=== PATIENT | female | born 2000 | race Caucasian/White ===

== ENCOUNTER 2021-06-09 22:51 | Emergency (ER) | payer BC ==
[~2021-06-09 22:51] MED LIST: HYDROCODON-ACE1 EAC4 PO; KEFLEX CAP 500500 MG PO; ZOFRAN4 MG PO
[2021-06-10 00:23] LABS: HEMOGLOBIN 13.6 gm/dl (12.3-15.3); RED BLOOD COUNT 4.87 M/UL (4.00-5.10); WHITE BLOOD COUNT 12.3 K/UL (4.5-11.0)
[2021-06-10 00:24] LABS: BUN/CREATININE RATIO 12 (0-10)
== END 2021-06-10 01:20 | disposition home or self-care (01) ==
LOC: ER1 22:51
PROVIDERS: Emergency Medicine
DX: E87.6 Hypokalemia (principal); R11.2 Nausea with vomiting, unspecified; Z20.822 Contact with and (suspected) exposure to COVID-19; F17.290 Nicotine dependence, other tobacco product, uncomplicated
CPT/HCPCS: 0240U; 80048; 82962; 85025; 96374; 96375; 99284; J1885; J2405